=== PATIENT | male | born 1970 | race Caucasian/White ===

== ENCOUNTER 2017-12-31 03:21 | Inpatient (IN) | payer OTHER ==
[2017-12-31] MEDS ORDERED: NACL 0.9% 3 ML SYG IV (05:00)
[2017-12-31] MEDS ORDERED: ALBUTEROL/IPRATROPIUM (NEB) 3 ML AMP HHN (05:00)
[2017-12-31] MEDS ORDERED: VANCOMYCIN IV PER PHARMACY XX (05:00)
[2017-12-31] MEDS ORDERED: ACETAMINOPHEN 325 MG TAB PO (05:00)
[2017-12-31] MEDS: GABAPENTIN 400 MG CAP PO ×2 (05:07→21:26)
[2017-12-31] MEDS: ONDANSETRON 4 MG INJ IV (05:09)
[2017-12-31] MEDS: SOD CHLORIDE 0.9% 1,000 ML IV ×2 (05:20→14:43)
[2017-12-31 06:08] LABS: ADD MAN DIFF? NO
[2017-12-31] MEDS: HYDROCODONE/APAP (5/325) TAB PO ×2 (06:10→18:32)
[2017-12-31] MEDS: VANCOMYCIN 1.5 GM in SOD CHLORIDE 0.9% 250 ML IVPB (06:12)
[2017-12-31 06:16] LABS: WHITE BLOOD COUNT 12.4 10^3/ul (4.8-10.8)
[2017-12-31 06:16] LABS: BASOPHIL # 0.1 10^3/ul (0.0-0.1); BASOPHILS % 0.6 % (0.0-2.0); EOSINOPHILS # 0.2 10^3/ul (0.0-0.5); EOSINOPHILS % 1.3 % (0.0-7.0); HEMOGLOBIN 16.4 g/dl (14.0-18.0); LYMPHOCYTES # 1.8 10^3/ul (0.8-2.9); LYMPHOCYTES % 14.1 % (15.0-51.0); MEAN CORPUSCULAR HEMOGLOBIN 29.5 pg (29.0-33.0); MEAN CORPUSCULAR HGB CONC 33.5 g/dl (32.0-37.0); MEAN CORPUSCULAR VOLUME 88.1 fl (82.0-101.0); MEAN PLATELET VOLUME 11.5 fl (7.4-10.4); MONOCYTE # 1.3 10^3/ul (0.3-0.9); MONOCYTES % 10.5 % (0.0-11.0); NEUTROPHIL # 9.1 10^3/ul (1.6-7.5); NEUTROPHILS % 72.9 % (39.0-77.0); PLATELET COUNT 145 10^3/UL (140-415); RED BLOOD COUNT 5.56 10^6/ul (4.70-6.10); RED CELL DISTRIBUTION WIDTH 13.8 % (11.5-14.5)
[2017-12-31 06:45] LABS: ALANINE AMINOTRANSFERASE 27 IU/L (13-69); ALBUMIN 3.2 g/dl (3.3-4.9); ALBUMIN/GLOBULIN RATIO 1.06; ALKALINE PHOSPHATASE 66 IU/L (42-121); ANION GAP 10 (5-13); ASPARTATE AMINO TRANSFERASE 28 IU/L (15-46); BILIRUBIN,INDIRECT 0.7 mg/dl (0-1.1); BILIRUBIN,TOTAL 0.7 mg/dl (0.2-1.3); BLOOD UREA NITROGEN 16 mg/dl (7-20); CALCIUM 8.6 mg/dl (8.4-10.2); CARBON DIOXIDE 21 mmol/L (21-31); CHLORIDE 110 mmol/L (97-110); CHOL/HDL RATIO 5.5 RATIO; CHOLESTEROL 167 mg/dl (100-200); CREATININE 1.01 mg/dl (0.61-1.24); Estimated GFR > 60 mL/min (>60); GLUCOSE 98 mg/dl (70-220); HDL CHOLESTEROL 30 mg/dl (27-67); LDL CHOLESTEROL,CALCULATED 102 mg/dl; MAGNESIUM 1.6 mg/dl (1.7-2.5); POTASSIUM 3.8 mmol/L (3.5-5.1); SODIUM 141 mmol/L (135-144); TOTAL PROTEIN 6.2 g/dl (6.1-8.1); TRIGLYCERIDES 175 mg/dl (0-149)
[2017-12-31] MEDS ORDERED: HEPARIN 5,000 UNIT/0.5 ML VIAL ×2 (08:29→21:16)
[2017-12-31] MEDS ORDERED: CEFEPIME 1GM/50 ML (PMX) 50 ML IVPB (09:00)
[2017-12-31] MEDS: TRIMETHOPRIM/SULFAMETHOX (DS) TAB PO ×2 (14:30→21:26)
[2017-12-31] MEDS: HEPARIN SODIUM 5,000 UNIT/ML VIAL SC ×2 (14:38→23:18)
[2017-12-31] MEDS: ASPIRIN (EC) 81 MG TAB PO (15:00)
[2017-12-31] MEDS: MAGNESIUM SULFATE 2 GM/50 ML 50 ML IVPB (16:08)
[2017-12-31] MEDS: LACTOBACILLUS RHAMNOSUS CAP PO (21:26)
[2017-12-31] MEDS: NICOTINE (14 MG/24 HR) PATCH TRANSDERM (21:26)
[2018-01-01] MEDS: HYDROCODONE/APAP (5/325) TAB PO ×3 (02:33→18:35)
[2018-01-01] MEDS: SOD CHLORIDE 0.9% 1,000 ML IV ×2 (02:36→22:51)
[2018-01-01] MEDS ORDERED: HEPARIN 5,000 UNIT/0.5 ML VIAL ×2 (08:09→20:23)
[2018-01-01] MEDS: LACTOBACILLUS RHAMNOSUS CAP PO ×2 (08:25→20:44)
[2018-01-01] MEDS: GABAPENTIN 300 MG CAP PO ×2 (08:25→11:54)
[2018-01-01] MEDS: NICOTINE (14 MG/24 HR) PATCH TRANSDERM (08:25)
[2018-01-01] MEDS: TRIMETHOPRIM/SULFAMETHOX (DS) TAB PO ×2 (08:25→20:44)
[2018-01-01] MEDS: ASPIRIN (EC) 81 MG TAB PO (08:25)
[2018-01-01] MEDS: HEPARIN SODIUM 5,000 UNIT/ML VIAL SC ×2 (08:33→21:00)
[2018-01-01] MEDS ORDERED: DOCUSATE SODIUM 100 MG CAP PO (19:00)
[2018-01-01] MEDS: GABAPENTIN 400 MG CAP PO (20:44)
[2018-01-02] MEDS: HYDROCODONE/APAP (5/325) TAB PO ×4 (00:39→18:47)
[2018-01-02 05:20] LABS: ADD MAN DIFF? NO
[2018-01-02 05:22] LABS: BASOPHILS % 0.4 % (0.0-2.0); EOSINOPHILS # 0.2 10^3/ul (0.0-0.5); EOSINOPHILS % 2.6 % (0.0-7.0); HEMATOCRIT 45.9 % (42.0-52.0); HEMOGLOBIN 15.5 g/dl (14.0-18.0); LYMPHOCYTES # 2.4 10^3/ul (0.8-2.9); LYMPHOCYTES % 33.1 % (15.0-51.0); MEAN CORPUSCULAR HEMOGLOBIN 29.5 pg (29.0-33.0); MEAN CORPUSCULAR HGB CONC 33.8 g/dl (32.0-37.0); MEAN CORPUSCULAR VOLUME 87.3 fl (82.0-101.0); MEAN PLATELET VOLUME 11.6 fl (7.4-10.4); MONOCYTE # 0.6 10^3/ul (0.3-0.9); MONOCYTES % 8.6 % (0.0-11.0); NEUTROPHILS % 54.8 % (39.0-77.0); PLATELET COUNT 125 10^3/UL (140-415); POSITIVE DIFF @See below; RED BLOOD COUNT 5.26 10^6/ul (4.70-6.10); RED CELL DISTRIBUTION WIDTH 13.4 % (11.5-14.5)
[2018-01-02 05:22] LABS: WHITE BLOOD COUNT 7.3 10^3/ul (4.8-10.8)
[2018-01-02 06:07] LABS: ALANINE AMINOTRANSFERASE 30 IU/L (13-69); ALBUMIN 3.6 g/dl (3.3-4.9); ALKALINE PHOSPHATASE 61 IU/L (42-121); ANION GAP 9 (5-13); ASPARTATE AMINO TRANSFERASE 23 IU/L (15-46); BILIRUBIN,INDIRECT 0.4 mg/dl (0-1.1); BILIRUBIN,TOTAL 0.4 mg/dl (0.2-1.3); BLOOD UREA NITROGEN 13 mg/dl (7-20); CALCIUM 8.6 mg/dl (8.4-10.2); CARBON DIOXIDE 21 mmol/L (21-31); CHLORIDE 110 mmol/L (97-110); CREATININE 1.11 mg/dl (0.61-1.24); Estimated GFR > 60 mL/min (>60); GLUCOSE 83 mg/dl (70-220); POTASSIUM 3.9 mmol/L (3.5-5.1); SODIUM 140 mmol/L (135-144); TOTAL PROTEIN 6.6 g/dl (6.1-8.1)
[2018-01-02] MEDS: SOD CHLORIDE 0.9% 1,000 ML IV ×2 (06:30→18:20)
[2018-01-02] MEDS: TRIMETHOPRIM/SULFAMETHOX (DS) TAB PO (09:10)
[2018-01-02] MEDS: LACTOBACILLUS RHAMNOSUS CAP PO ×2 (09:10→20:40)
[2018-01-02] MEDS: ASPIRIN (EC) 81 MG TAB PO (09:10)
[2018-01-02] MEDS: GABAPENTIN 300 MG CAP PO ×2 (09:10→12:57)
[2018-01-02] MEDS: NICOTINE (14 MG/24 HR) PATCH TRANSDERM (09:11)
[2018-01-02] MEDS: ENOXAPARIN 30 MG/0.3 ML SYG SC (09:13)
[2018-01-02] MEDS: GABAPENTIN 400 MG CAP PO (20:40)
[2018-01-03] MEDS: HYDROCODONE/APAP (5/325) TAB PO ×3 (01:17→13:58)
[2018-01-03] MEDS: SOD CHLORIDE 0.9% 1,000 ML IV ×2 (02:17→14:41)
[2018-01-03] MEDS: SOD CHLORIDE 0.9% 100 ML (07:43)
[2018-01-03] MEDS: IOHEXOL 300MG/ML 150 ML BTL (07:43)
[2018-01-03] MEDS: GABAPENTIN 300 MG CAP PO ×2 (09:54→12:58)
[2018-01-03] MEDS: NICOTINE (14 MG/24 HR) PATCH TRANSDERM (09:55)
[2018-01-03] MEDS: LACTOBACILLUS RHAMNOSUS CAP PO ×2 (09:55→20:14)
[2018-01-03] MEDS: ASPIRIN (EC) 81 MG TAB PO (09:55)
[2018-01-03] MEDS: ENOXAPARIN 30 MG/0.3 ML SYG SC (09:56)
[2018-01-03] MEDS: GABAPENTIN 400 MG CAP PO (20:14)
== END 2018-01-03 20:45 | disposition home or self-care (01) | DRG 603 ==
LOC: MS1 03:21
DX: A46 Erysipelas (principal); R64 Cachexia; I10 Essential (primary) hypertension; R73.03 Prediabetes; K57.90 Diverticulosis of intestine, part unspecified, without perforation or abscess without bleeding; R62.7 Adult failure to thrive; I73.9 Peripheral vascular disease, unspecified; I70.0 Atherosclerosis of aorta; F17.210 Nicotine dependence, cigarettes, uncomplicated; Z68.30 Body mass index [BMI] 30.0-30.9, adult; Z93.3 Colostomy status
CPT/HCPCS: 75635; 80053; 80061; 83036; 83735; 84100; 84443; 85025; 93922